=== PATIENT | male | born 2005 | race Hispanic/Latino ===

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

== ENCOUNTER 2023-09-05 23:19 | Emergency (ER) | payer SELFPAY ==
[2023-09-06 01:26] LABS: #Basophils 0.07 10x3/uL (0.0-0.2); %Basophils 0.8 % (0.0-1.0); %Lymphocytes 27.5 % (28.0-48.0); %Monocytes 6.6 % (0.0-4.0); Hematocrit 44.1 % (42.0-52.0); Hemoglobin 15.3 g/dL (14.0-18.0); Mean Corpuscular HGB CONC 34.7 g/dL (32.0-36.0); Mean Corpuscular Hemoglobin 30.2 pg (25.0-35.0); Mean Corpuscular Volume 87.2 fL (78.0-98.0); Mean Platelet Volume 9.5 fL (7.4-10.4); Platelet Count 354 10x3/uL (130-400); RBC Distribution Width 11.9 % (11.5-14.5); Red Blood Cell (RBC) Count 5.06 mill/uL (4.00-5.20)
[2023-09-06 01:42] LABS: ALT (SGPT) 14 U/L (8-55); AST (SGOT) 15 U/L (5-34); Albumin 4.7 g/dL (3.5-5.0); Alkaline Phosphatase 79 U/L (50-130); Anion Gap 13 mmol/L (10-20); BUN (Urea Nitrogen) 15 mg/dL (8.9-20.6); Bilirubin, Total 1.3 mg/dL (0.2-1.2); Calc. Creatinine Clearance 0 mL/min (70-130); Calcium 10.1 mg/dL (7.8-10.44); Carbon Dioxide 26 mmol/L (22-29); Chloride 103 mmol/L (98-107); Estimated GFR 125; Globulin 2.9 g/dL (2.4-3.5); Glucose 89 mg/dL (70-105); Potassium 3.9 mmol/L (3.5-5.1); Protein, Total 7.6 g/dL (6.0-8.3); Sodium 138 mmol/L (136-145)
[2023-09-06 01:48] LABS: PTT 29.6 sec (22.9-36.1)
== END 2023-09-06 02:44 | disposition home or self-care (01) ==
LOC: ERS 23:19
DX: K94.01 Colostomy hemorrhage (principal); I10 Essential (primary) hypertension
CPT/HCPCS: 36415; 80053; 85025; 85610; 85730; 99283